=== PATIENT | female | born 1970 | race Caucasian/White ===

== ENCOUNTER → 2020-06-27 | Outpatient (CLI) | payer OTHER ==
[~2020-06-27] MED LIST: CEPH-368 PO; None per pt; OXYC-302 PO; POLY17PO5 PO
== END | disposition home or self-care (01) ==
LOC: RAD 16:30
PROVIDERS: ATTEND Family Medicine
DX: M17.12 Unilateral primary osteoarthritis, left knee (principal); M25.762 Osteophyte, left knee; M25.462 Effusion, left knee